=== PATIENT | male | born 1990 | race Caucasian/White ===

== ENCOUNTER 2019-08-16 23:37 | Emergency (ER) | payer OTHER, SELFPAY ==
[2019-08-16 23:37] VITALS: BP 144/86; PULSE 70; RESP 18; TEMP 36.7; O2SAT 99; BMI 23.6
--- NOTE | 2019-08-16 23:46 | ED.VIS.GEN ---
History of Present Illness Chief Complaint: Laceration Narrative: Patient is a 28-year-old male who presents with a left hand laceration. This occurred at work. He was trying to cut through a plastic piece with a knife when the plastic broke his hand slipped and he cut his left hand near the base of the thumb. This occurred about 2 hours ago. His tetanus is up-to-date. He complains of some burning pain at the site of the laceration but no weakness paresthesias loss of function. He denies any medical history or daily medications. No other injuries. He is otherwise recently been well. Past Medical History - Allergies and Home Meds Allergies/Adverse Reactions: Allergies bismuth subsalicylate [From Pepto-Bismol] Adverse Reaction (Verified 08/16/19 23:39) Other SEASONAL ALLERGRIES Adverse Reaction (Uncoded 08/16/19 23:39) Other Primary Care Physician: NOT,DEFINED [Primary Care Provider] - Past Medical History: None Surgical History: no surgical history Smoking Status: Light Smoker (<10/day) Review of Systems All systems negative except as indicated Physical Exam Vital Signs/Narrative: Vital Signs Temp Pulse Resp BP Pulse Ox 08/16/19 23:37 98.0 F 70 18 144/86 H 99 Inital Vital Signs reviewed: Yes General: Well nourished Head: Normocephalic Eyes: EOMI ENT: Moist mucous membranes Cardiovascular: Regular rate Respiratory: No distress Extremities: - - Patient has a 2 cm laceration of the left hand at the thenar eminence with mild venous oozing active full range of motion normal sensation brisk capillary refill Skin: Normal color Neurological: Alert Psychological: Normal affect Diagnostic/Tx/Re-eval - Medical Decision Making Laceration was anesthetized with 2 cc of local 1% lidocaine without epinephrine. Good anesthesia was achieved. 3 simple interrupted 4?0 nonabsorbable sutures were placed. Dressing applied. Patient instructed on local wound care. He was advised on signs and symptoms of infection to monitor for and was discharged home. ED Disposition - Plan for ED Patient: Disposition: Home or Assisted Living Diagnosis: Hand laceration Instructions: LACERATION, Hand Referrals: NOT,DEFINED [Primary Care Provider] - [facility] [GROUP OF PHYSICIANS] -
== END 2019-08-17 00:38 | disposition home or self-care (01) ==
LOC: ED 08-17 00:28
PROVIDERS: Emergency Provider Emergency Medicine; Family Provider Family Medicine; PCP Family Medicine
DX: S61.412A Laceration without foreign body of left hand, initial encounter (principal); W26.0XXA Contact with knife, initial encounter; Y93.89 Activity, other specified; Y92.9 Unspecified place or not applicable; Y99.0 Civilian activity done for income or pay; F17.200 Nicotine dependence, unspecified, uncomplicated
CPT/HCPCS: 12001; 99283

== ENCOUNTER 2021-08-16 18:04 | Emergency (ER) | payer BC, SELFPAY ==
[2021-08-16 18:05] VITALS: BP 111/88; PULSE 80; RESP 15; TEMP 36.3; O2SAT 99; BMI 24.3
--- NOTE | 2021-08-16 18:17 | EDS_ITS ---
HPI History of Present Illness Chief Complaint: Back Informant: patient Narrative Narrative: 30-year-old male presents the emergency room with acute low back pain. 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 The patient denies any radicular symptoms. He denies any bowel or bladder difficulties. He notes painful range of motion in any direction. He states that it feels very muscular. He has had similar episode in the past but not to this degree. He has no red flag history. He stretches regularly and is very active on the soccer field. PFSH PFSH Home Medications dextroamphetamine-amphetamine [Adderall 30 mg Tablet] 30 mg PO DAILY 04/16/14 [History Last Taken Unknown] docusate sodium [Colace] 100 mg PO BID PRN PRN #10 capsule 05/01/14 [Rx Last Taken Unknown] promethazine 25 mg PO Q4H PRN PRN #10 tablet 05/01/14 [Rx Last Taken Unknown] tramadol 100 mg PO Q6H PRN PRN #60 tab 05/01/14 [Rx Last Taken Unknown] diazepam 5 mg PO Q8 PRN #15 tab 08/16/21 [Rx Last Taken Unknown] oxycodone-acetaminophen 1 tab PO Q6H PRN PRN 3 Days #12 tablet 08/16/21 [Rx Last Taken Unknown] Allergy/AdvReac Type Severity Reaction Status Date / Time bismuth subsalicylate AdvReac Other Verified 08/16/21 18:06 [From Pepto-Bismol] SEASONAL ALLERGRIES AdvReac Other Uncoded 08/16/21 18:06 Social History (Updated 08/16/21 @ 18:[address] Michael Cam, DO) Smoking Status: Never smoker substance use type: does not use ROS ROS ED Constitutional Constitutional ED: Denies chills or weight loss Eyes Eyes: Denies change in vision or diplopia ENT ENT ED: Denies ear pain, rhinorrhea or sore throat Cardiovascular Cardiovascular: Denies chest pain, orthopnea, palpitations or racing heartbeat Respiratory/Chest Respiratory/Chest: Denies cough, dyspnea or orthopnea Gastrointestinal Gastrointestinal: Denies abdominal pain, diarrhea, nausea or vomiting Genitourinary Genitourinary ED: Denies dysuria, hematuria or urinary frequency Musculoskeletal Musculoskeletal: Reports back pain; Denies arthralgias or myalgias Integumentary Denies abscess or rash Neurologic Neurologic: Denies headache(s) or weakness Psychiatric Psychiatric: Denies anxiety, depression, suicidal ideation or suicidal thoughts Endocrine Endocrinology: Denies polydipsia, polyphagia or polyuria Allergic/Immunologic Allergic/Immunologic ED: Denies mouth swelling, tongue swelling or urticaria EXAM Physical Exam Narrative Exam Narrative: Patient appears very uncomfortable with any type of movement Const Vital Signs: 08/16/21 18:05 Temperature 97.3 F L Temperature Source Temporal Pulse Rate 80 Respiratory Rate 15 Blood Pressure 111/88 H Blood Pressure Mean 95 Pulse Ox 99 Oxygen Delivery Method Room Air Positive well nourished and well developed General Appearance ED: well developed HEENT Reports normocephalic, head/scalp atraumatic and moist mucous membranes Negative for trauma Tympanic Membrane ED: Yes TM's clear Eyes PERRL and EOMs intact bilaterally Neck no lymphadenopathy, supple and no JVD Resp normal respiratory effort and clear to auscultation bilaterally Cardio regular rate, regular rhythm and no murmurs GI normal to inspection, nondistended, normoactive bowel sounds and non-tender Palpation: soft Back/Spine no CVA tenderness and normal ROM Back/Spine Narrative: Limited range of motion. He has tenderness to palpation in the lumbar paraspinal musculature. There is no tenderness in the sciatic notch. Lumbar Spine / Lower Back: ROM limited Extremity normal to inspection General Extremety ED: Negative for edema General Extremity: Negative for edema Neuro oriented x3 and CN's II-XII intact bilaterally Sensorium / Orientation: alert Motor Exam: strength 5/5 throughout Deep Tendon Reflexes: Rt Patellar (L4): 2+, Lt Patellar (L4): 2+, Rt Ankle (S1): 2+ and Lt Ankle (S1): 2+ Deep Tendon Reflexes Back: Rt Patellar (L4): 2+, Lt Patellar (L4): 2+, Rt Ankle (S1): 2+ and Lt Ankle (S1): 2+ Psych mental status grossly normal Mood & Affect: Negative for depressed or tearful Skin no rashes or lesions noted and no wounds MDM MDM MDM Narrative Medical decision making narrative: This appears to be muscular spasm. Patient understands home treatment plan. I will write for Percocet, Valium, and scheduled anti-inflammatories. 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 Discharge Plan Triage Chief Complaint: Back ED Provider: Michael Cam Dx/Rx/DC Orders Clinical Impression: Acute lumbar myofascial strain Instructions: ED Back Sprain/Strain Prescriptions: New diazepam [diazepam] 5 MG tablet 5 mg PO Q8 PRN (Reason: Muscle Spasm) Qty: 15 RF: 0 oxycodone-acetaminophen [oxycodone-acetaminophen] 1 TABLET tablet 1 tab PO Q6H PRN PRN (Reason: Pain) 3 Days Qty: 12 RF: 0 No Action dextroamphetamine-amphetamine [Adderall] 30 MG tablet 30 mg PO DAILY RF: 0 promethazine 25 MG tablet 25 mg PO Q4H PRN PRN (Reason: Nausea) Qty: 10 RF: 0 docusate sodium [DOK] 100 MG capsule 100 mg PO BID PRN PRN (Reason: Constipation) Qty: 10 RF: 0 tramadol 50 MG tablet 100 mg PO Q6H PRN PRN (Reason: Pain) Qty: 60 RF: 0 Primary Care Provider: Bhavesh Caban Referrals: Bhavesh Caban MD [Primary Care Provider] - 1 Week if not improving Disposition Disposition: Home, Self Care
[2021-08-16] MEDS: oxyCODONE 5 MG Tablet 10 MG PO (18:47)
[2021-08-16] MEDS: diazePAM 5 MG Tablet PO (18:47)
[2021-08-16] MEDS: Ketorolac 60 MG/2 ML Vial IM (18:47)
[2021-08-16 18:56] VITALS: BP 121/87; PULSE 77; RESP 16; O2SAT 97
== END 2021-08-16 19:18 | disposition home or self-care (01) ==
PROVIDERS: Emergency Provider Emergency Medicine; PCP Family Medicine
DX: S39.012A Strain of muscle, fascia and tendon of lower back, initial encounter (principal); Y93.02 Activity, running; X58.XXXA Exposure to other specified factors, initial encounter; Z79.899 Other long term (current) drug therapy
CPT/HCPCS: 96372; 99284

== ENCOUNTER → 2021-09-07 16:32 | Outpatient (CLI) | payer BC, SELFPAY ==
--- NOTE | 2021-09-07 16:42 | RAD_ITS ---
STUDY: X-RAY - THORACIC SPINE REASON FOR EXAM: Male, 30 years old. NODULE AT 11TH RIGHT POSTERIOR COSTOVERTEBRAL JOINT TECHNIQUE: 3 view(s) of the thoracic spine were obtained. COMPARISON: None. FINDINGS: Please see the impression. RAD/Thoracic Spine 3 Views IMPRESSION: No acute fracture or subluxation in the thoracic spine. No significant thoracic spondylosis. No endplate erosion. Status post ORIF of the left clavicle. Electronically Signed: Tom Dawkins MD at 18:52 EST Tel , Service support ,
== END ==
LOC: MTRAD 16:34
PROVIDERS: PCP Family Medicine; Referring Provider Family Medicine; Visit Provider Family Medicine
DX: M54.6 Pain in thoracic spine (principal)
CPT/HCPCS: 72072

== ENCOUNTER → 2021-09-25 06:38 | Outpatient (CLI) | payer BC, SELFPAY ==
--- NOTE | 2021-09-25 06:41 | MRI_ITS ---
HISTORY: back pain, lump R lower thoracic area marked with bead markers. TECHNIQUE: Multiplanar and multisequence MR images of the thoracic spine. IV Contrast dosage and agent: None. # of images incl. paperwork: 235. COMPARISON: XR 09/07/2021. FINDINGS: VERTEBRAE: Vertebral body heights maintained. No bone marrow signal abnormality. ALIGNMENT: No anterior or posterior subluxation. CORD: Morphology and signal within normal limits. SOFT TISSUES: 8 mm x 3 cmx 3.6 cm relatively homogeneous and circumscribed fatty mass in the region of interest between the markers in the right lower posterior soft tissues at the junction of the subcutaneous and muscular space. No prevertebral fluid collection. INTERVERTEBRAL DISCS: No significant posterior disc protrusion, central canal stenosis, or foraminal narrowing. MRI/Spine Thoracic (Routine) IMPRESSION: Small lipoma in the right lower posterior soft tissues, corresponding to the region of interest. No significant posterior disc herniation, spinal canal stenosis, or foraminal narrowing in the thoracic spine. at 0907 Reported and signed by: Manuela Temple MD Electronically Signed: Manuela Temple MD at 9:06 EST Tel , Service support ,
== END ==
PROVIDERS: PCP Family Medicine; Referring Provider Family Medicine; Visit Provider Family Medicine
DX: M54.6 Pain in thoracic spine (principal)
CPT/HCPCS: 72146

== ENCOUNTER → 2023-06-16 | Outpatient (CLI) | payer BC, SELFPAY | END | disposition home or self-care (01) | PROVIDERS: PCP Family Medicine; Referring Provider Family Medicine; Visit Provider Family Medicine | DX: F98.8 Other specified behavioral and emotional disorders with onset usually occurring in childhood and adolescence (principal) | CPT/HCPCS: 36415 ==

== ENCOUNTER 2023-07-12 09:58 | Day surgery (SDC) | payer BC, SELFPAY ==
[2023-07-12] VITALS (7 sets, daily range): BP systolic 94–113; BP diastolic 62–81; PULSE 55–65; RESP 16–18; TEMP 36.2–36.4; O2SAT 97–100; BMI 24.0
--- NOTE | 2023-07-12 | LIP_PTH ---
PATIENT: CHELA MARQUES II LOC: [facility] [place] U#:[id number] AGE/SX: 32/M ROOM: RE07/12/[address]: Dr. Bernard Fuentes MD : 1990 BED: DIS: 07/12/2023 SPEC #: [id number] RECD: 07/12/23 16:21 STATUS: MOLLY MIKA #: [id number] RONALD: 07/12/23 00:[address]: Bernard Fuentes DEPT: SURGICAL PATHOLOGY RECD BY: Ean Cunha ENTERED: 07/13/23 08:14 SP TYPE: LIPOMA OTHR DR: Dr. David Caban MD Tissues: Soft tissues, NOS Procedures: Surgery Specimen Level III HEADER OPERATION: Excision lipoma right lower back PRE-OP DIAGNOSIS: Lipoma of back TISSUE SUBMITTED: Lipoma right lower back MICROSCOPIC DIAGNOSIS Right lower back lipoma, excision: Mature adipose tissue, favor lipoma. SJ:ralph 07/14/2023 MICROSCOPIC DESCRIPTION Slides are reviewed. GROSS DESCRIPTION Received in fixative is one container labeled with the patient's name and designated right lower back lipoma. The specimen consists of an irregular fragment of yellow fatty tissue measuring 4.3 x 3.0 x 1.8 cm. Serial sections reveal homogenous yellow cut surfaces without areas of cyst formation, necrosis or hemorrhage. T[employer] sections are submitted in one cassette. / AM:ralph 07/13/2023 TC:1 CPT: 17121
[2023-07-12] MEDS: Lactated Ringers 1,000 ML 15 ML IV (10:12)
--- NOTE | 2023-07-12 11:05 | PCM.HP.BLA ---
History and Physical Date of Admission: 07/12/23 Date of Service: 06/30/23 MR#: [id number] Acct: [id number] Name: CHELA MARQUES II Rep #: [id number] : 1990 Provider: Dr. Bernard Fuentes MD Age/Sex: 32/M Location: [facility] Status: Signed Intake Vital Signs 03/23/2310:12 06/30/2313:05 Height 5 ft 10 in 5 ft 10 in Weight: 164 lb 166 lb 2 oz BMI 23.5 23.8 BP 118/80 126/76 H Blood Pressure Location Rt brachial Rt brachial Position Sitting Sitting Respiration 17 17 Pulse 65 63 Pulse Source Monitor Monitor Temp 97.7 F L 97.5 F L Temp Source Temporal Tympanic Pulse Oximetry (%) 98 98 Oxygen Delivery Method room air room air Intake Visit Reasons: UPDATE H&P FOR LIPOMA REMOVAL Chief Complaint: update H&P Allergies bismuth subsalicylate [From Pepto-Bismol] Adverse Reaction (Verified 06/30/23 13:07) Black tongueSeasonal Allergies: Uncoded Adverse Reaction (Verified 06/30/23 13:07) NEEDS FOLLOW-UP Medications dextroamphetamine-amphetamine 5 mg tablet 5 mg PO DAILY 08/16/21 [History Confirmed 06/30/23] dextroamphetamine-amphetamine ER 20 mg 24hr capsule,extend release (Adderall XR) 20 mg PO DAILY 08/16/21 [History Confirmed 06/30/23] PFSH Medical History Acute otitis externa of left ear Acute sinusitis, unspecified Back pain Former smoker History of fracture of clavicle Surgical History History of nasal surgery Social History Smoking Status: Former smoker alcohol intake: current substance use type: does not use HPI HPI HPI: Patient is a 32-year-old male who presents for back lipoma. He is referred from Dr. Caban. His initial consultation visit for this issue was 03/23/2023. At that time we jointly determined that this was not an optimal time for excision of this benign growth and we agreed to follow-up this issue after the summer when patient had several vacations planned. Patient presents today for that visit with his . He states that overall he is in his usual state of health, but he mentions that he has experienced more inflammation and flaring with discomfort from this area. He notes that it is particularly worse with physical activity and gives examples of camping the last weekend and boating during a prior weekend. 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 Below is recapitulated from patient's prior visit for ease of review: Patient initially reports that he believes this area has been present for the last 8 months to 1 year, but later we identify a thoracic spine MRI from 09/25/2021 and patient states that his symptoms actually proceeded this study by approximately 6 months. He reports that his right back lipoma has been bothering him and acts as a constant annoyance. He believes he feels back spasms originating from this area with physical activity such as cutting wood at his home. He has no previous history of lipomas or other skin lesions. He states that his job at [email or web address] is not particularly physically demanding. He has not noticed any drainage from this area, but reports that his has noticed some mild redness when they are out by the pool. Patient has a history of is a former smoker, but denies any issues with hyperglycemia or prior staph infections. Pertinent surgical history includes: Noncontributory ROS General General: Yes fatigue; No weight change, appetite, colon cancer, breast cancer or weakness HEENT HEENT: No difficulty swallowing, eye injury, eye surgery, swollen glands or hoarseness Endo Endocrine: No thyroid disease, diabetes mellitus, thyroid cancer, Hair loss, heat intolerance or cold intolerance Skin Skin: No rash or changing moles Musc Musculoskeletal: Yes back problems; No arthritis, rheumatoid arthritis, gout or joint pain Cardio Cardiovascular: No murmur, pacemaker, heart disease, atrial fibrillation, high blood pressure, heart attack, heart stent, palpitations, shortness of breat with exertion or chest pain Psych Psychiatric: No depression, anxiety or hearing voices Resp Respiratory: No shortness of breath, No sleep apnea, No cough, No COPD, Yes asthma, No emphysema and No wheezing Gastro Gastrointestinal: No abdominal pain, No nausea or vomiting, No diarrhea, No constipation, No blood in stool, No acid reflux, No hemorrhoids, No ulcers, No gallbladder problem and No black,tarry stools Isacc Hematologic: No blood thinners, No blood disorders, No bleeding, No anemia and No blood clots Neuro Neurologic: No system reviewed and no additional complaints, except as documented, No as per HPI, No abnormal gait, No abnormal hearing, No abnormal movements, No abnormal speech, No behavioral changes, No burning sensations, No confusion, No convulsions, No disequilibrium, No dizziness, No localized weakness, No frequent falls, No headache(s), No lack of coordination, No loss of vision, No memory loss, No numbness, No other visual disturbances, No radicular pain, No restless legs, No sensory deficit, No syncope, No tingling, No tremor(s), No weakness and No other Exam Const General: cooperative, healthy appearing, comfortable and no acute distress Orientation: alert, awake and oriented x3 Musc Other: Patient with a stab mobile, soft lesion approximately 3.5 cm in diameter located along the right thoracolumbar back. There is no tenderness with manipulation today. Assessment and Plan Assessment and Plan (1) Lipoma of back: Status: Chronic Comment: This is a 32-year-old male who presents for evaluation of a right back lipoma which he acknowledges was first noted approximately 2 years ago. He is symptomatic from this area as manifest with mild discomfort and irritation that has been become progressive since his initial consultation in February. Therefore he, again, requests excision. He now seems prepared for this procedure as he is no longer planning any water sport activities. I also shared with him that he will need to refrain from any activity that includes twisting or lifting significant weight for 3 to 4 weeks postop to avoid risk for seroma. Lastly I previously recommended we proceed to the operating room for this excision given that my review of his 09/25/2021 MRI shows this lipoma extending down to the level of the muscle. Reading radiologist noted a size of 0.8 cm x 3 cm x 3.6 cm. Plan: Excision of right lumbar back lipoma under anesthesia at patient's convenience. Post procedure activity restrictions discussed above. Procedure to be formed with outpatient disposition. I have examined the patient and the H&P has been reviewed. There are no clinical changes since date of exam. Patient's site was marked and procedure/post procedure expectations were reviewed with patient and his family. All questions were answered to their satisfaction. Proceed to the operating room for scheduled lipoma excision.
[2023-07-12] MEDS: Cefazolin 2 GM in 0.9% Normal Saline (100mL Bag) 100 ML IV (12:29)
[2023-07-12] MEDS: Bupivacaine 0.25% 30 ML Vial (13:49)
--- NOTE | 2023-07-12 14:09 | OP.PCM_ITS ---
Report of Operation Date of Procedure: 07/12/23 Pre-Operative Diagnosis: Right lower back lipoma Post-Operative Diagnosis: Intramuscular right lower back lipoma Surgery/Procedure Performed:: Excision of right lower back lipoma Description of Surgical Findings:: Deep, submuscular (within the paraspinous muscle on the right) lobulated lipoma Surgeon: Bernard Fuentes cotton chopper: None Type of Anesthesia: MAC/Supplemental Anesthesiologist: Cash Green Specimen's removed: Lipoma Drains: None Estimated Blood Loss (mL): 15 Description of Procedure: After appropriate identification the preoperative holding area patient was b rought to the operating room where he was positioned in a left lateral decubitus position on a beanbag. There he was administered a local MAC. Preoperative antibiotics were infused. His lower back was prepped and draped in usual sterile fashion. A formal timeout followed to confirm both patient and procedure. I then made a transverse incision 4.5 cm long along the mid aspect of the patient's lipomatous mass. This was carried deeply through the dermal and underlying subcutaneous tissue with use of electrocautery to maintain hemostasis as we proceeded. Initially, I began a very superficial course of dissection at the subcutaneous layer from the overlying dermal layer. However, with additional palpation I readily identified semimobile lobulated mass within the paraspinous musculature. Upon this recognition I incised the overlying wispy muscle fibers and entered the capsule about the lipoma exposing the mass. Visualizing the lipomatous mass I used a combination of blunt dissection and electrocautery to free this mass from the surrounding soft tissue. It was apparent during this dissection that there was a second lobule more inferior to the first that was circumferentially dissected along with the more cephalad segment and the 2 lobules were maintained as a single unit. Ultimately I was able to free the last deep attachments to the muscle with electrocautery and the specimen was passed off the field for pathologic processing. Final measurements revealed a lipoma 4 cm x 2.5cm. Selective electrocautery was used to maintain hemostasis. In addition to the MAC anesthetic by anesthesia, local anesthetic was used to try to maintain patient's comfort with a total volume of 30 mL 0.25% bupivacaine plain. The cavity was then irrigated and reinspected for hemostasis. Upon confirming the latter, the cavity was closed in layers to plicate the space deeply and approximate the deep dermal tissues using 2-0 and 3-0 Vicryl, respectively. Lastly a third la sandi was performed in a subcuticular fashion using 4-0 Monocryl. Steri-Strips and dressing were applied and the patient's sedation was lightened and he was transferred to the PACU bed for his ongoing care. Complications None Admit VTE Documentation VTE Mechan Device Prophylaxis: SCD's Procedures Integumentary 114x: [id number] Exc tr-ext b9+milind 3.1-4 cm
--- NOTE | 2023-07-12 14:11 | DCINST_ITS ---
Discharge Instructions Diet Discharge Diet: No restrictions Activity Discharge Activity: May Drive (No driving while using narcotic pain medication) May shower in (days): 2 Ice area for (Minutes): 20 Lifting Restrictions: Limit bending, pulling, and lifting with right upper extremity<15lbs Dressing / Incision Call your doctor if your incision/area has: Continuous Slow Oozing, Sudden Increased Bleeding, Increased Pain/ Swelling, Increased Redness, Foul Smelling Discharge and Swelling at the incision site Call your doctor if you observe: Fever of 101 or Higher Suture Line Care: Avoid Pulling/Pushing Remove Dressing in: 2 days Cleanse incision/area with: Soap & Water Additional Dressing/Incision Instructions:: Please leave Steri-Strips intact until they fall off spontaneously or are taken off at your follow-up visit Follow Up Care Please Follow Up With: Bernard Fuentes MD When: 7 days postop Test Results: Test results from this visit will be discussed in further detail at your follow- up appointment, if applicable. Discharge Plan Admission Primary Reason for Your Visit: Excision of back lipoma Attending Provider: Bernard Fuentes Primary Care Provider: Bhavesh Caban Discharge Orders/Prescriptions Prescriptions: New oxycodone 5 mg tablet 5 mg PO Q6H PRN (Reason: pain) 5 Days Qty: 14 0RF Continued dextroamphetamine-amphetamine [Adderall XR] 20 mg capsule,extended release 24hr 20 mg PO DAILY dextroamphetamine-amphetamine 5 mg tablet 5 mg PO DAILY cetirizine [24Hour Allergy] 10 mg tablet 10 mg PO DAILY PRN (Reason: allergy symptoms) albuterol sulfate 90 mcg/actuation HFA aerosol inhaler 2 puff INHALATION PRN Referrals / Follow Up: Bhavesh Caban MD [Primary Care Provider] - Disposition Disposition (needs filled in before D/C Order can be placed): Home, Self Care
== END 2023-07-12 15:17 | disposition home or self-care (01) ==
LOC: SDC 09:58 → AC 10:00
PROVIDERS: PCP Family Medicine; Referring Provider Surgery; Visit Provider Surgery
PROC: (CPT 21933; principal; 2023-07-12 11:15)
DX: D17.39 Benign lipomatous neoplasm of skin and subcutaneous tissue of other sites (principal); J45.909 Unspecified asthma, uncomplicated; Z87.891 Personal history of nicotine dependence; Z79.899 Other long term (current) drug therapy
CPT/HCPCS: 21933; 00300; 88304; J7120; J2405